=== PATIENT | male | born 1985 | race Two or more races ===

== ENCOUNTER 2017-08-09 04:09 | Emergency (ER) | payer SELFPAY ==
[~2017-08-09] VITALS: Ht 172.7 cm; Wt 71.6 kg
[2017-08-09 04:10] VITALS: BP 111/74
[2017-08-09] MEDS ORDERED: KETOROLAC 30 MG/1 ML ONE (05:18)
[2017-08-09] MEDS ORDERED: KETOROLAC 30 MG/1 ML IM ONE (05:30)
== END 2017-08-09 06:16 | disposition home or self-care (01) ==
LOC: ED 06:10 → MERGE 06:10 → ED 06:16
DX: R07.89 Other chest pain (principal); F17.210 Nicotine dependence, cigarettes, uncomplicated
CPT/HCPCS: 71101; 96372; 99284; J1885

== ENCOUNTER 2018-04-10 14:54 | Emergency (ER) | payer OTHER ==
[~2018-04-10] VITALS: Ht 167.6 cm; Wt 75.0 kg
[2018-04-10 15:00] VITALS: BP 106/53
[2018-04-10] MEDS ORDERED: HYDROcodone/APAP 5/325 TABLET ONE (15:56)
[2018-04-10] MEDS ORDERED: HYDROcodone/APAP 5/325 TABLET PO ONE (16:00)
== END 2018-04-10 16:18 | disposition home or self-care (01) ==
LOC: ED 16:12
DX: S93.412A Sprain of calcaneofibular ligament of left ankle, initial encounter (principal); G89.11 Acute pain due to trauma; M25.572 Pain in left ankle and joints of left foot; M79.672 Pain in left foot; M79.5 Residual foreign body in soft tissue; X50.1XXA Overexertion from prolonged static or awkward postures, initial encounter; Y93.66 Activity, soccer; Y99.8 Other external cause status; Y92.830 Public park as the place of occurrence of the external cause
CPT/HCPCS: 99284

== ENCOUNTER 2018-12-16 13:22 | Emergency (ER) | payer SELFPAY ==
[~2018-12-16] VITALS: Ht 167.6 cm; Wt 73.0 kg
[2018-12-16 13:24] VITALS: BP 125/80
[2018-12-16] MEDS ORDERED: L.E.T SOLUTION TP ONE ×2 (13:45→14:00)
[2018-12-16] MEDS ORDERED: DIPH,PERTUSS(ACELL),TET VAC/PF 0.5 ML IM-VACC ONE (13:57)
[2018-12-16] MEDS ORDERED: DIPH,PERTUSS(ACELL),TET VAC/PF NC IM-VACC ONE (14:00)
== END 2018-12-16 16:06 | disposition home or self-care (01) ==
LOC: ED 15:03
DX: S01.81XA Laceration without foreign body of other part of head, initial encounter (principal); S01.21XA Laceration without foreign body of nose, initial encounter; F17.200 Nicotine dependence, unspecified, uncomplicated; W10.9XXA Fall (on) (from) unspecified stairs and steps, initial encounter; Y93.89 Activity, other specified; Y92.009 Unspecified place in unspecified non-institutional (private) residence as the place of occurrence of the external cause; Y99.8 Other external cause status
CPT/HCPCS: 12013; 70450; 70486; 90471; 90715

== ENCOUNTER 2019-05-04 23:34 | Emergency (ER) | payer SELFPAY ==
[~2019-05-04] VITALS: Ht 167.6 cm; Wt 75.6 kg
[2019-05-04 23:58] VITALS: BP 107/63
[2019-05-05] MEDS ORDERED: CEFTRIAXONE 250 MG IM ONE
[2019-05-05] MEDS ORDERED: AZITHROMYCIN 500 MG TABLET PO ONE
[2019-05-05] MEDS ORDERED: CEFTRIAXONE 250 MG ONE (00:20)
[2019-05-05] MEDS ORDERED: AZITHROMYCIN 250 MG TABLET ONE (00:20)
== END 2019-05-05 01:33 | disposition home or self-care (01) ==
LOC: ED 05-05 01:20
DX: A56.01 Chlamydial cystitis and urethritis (principal); N50.811 Right testicular pain; N50.812 Left testicular pain; K40.90 Unilateral inguinal hernia, without obstruction or gangrene, not specified as recurrent
CPT/HCPCS: 76870; 87491; 87591; 96372; 99284; J0696

== ENCOUNTER 2020-05-01 17:47 | Emergency (ER) | payer OTHER ==
[~2020-05-01] VITALS: Ht 167.6 cm; Wt 72.8 kg
--- NOTE | 2020-05-01 18:30 | NUR ---
Pt to CT
--- NOTE | 2020-05-01 18:41 | NUR ---
Pt in no distress, on phone, laughing, friend at bedside.
--- NOTE | 2020-05-01 19:41 | NUR ---
Pt resting, no complaints, MD at bedside.
[2020-05-01 19:42] VITALS: BP 105/54
== END 2020-05-01 20:20 | disposition home or self-care (01) ==
LOC: ED 18:00
DX: S16.1XXA Strain of muscle, fascia and tendon at neck level, initial encounter (principal); S09.90XA Unspecified injury of head, initial encounter; M25.512 Pain in left shoulder; Y04.0XXA Assault by unarmed brawl or fight, initial encounter; Y93.89 Activity, other specified; Y92.009 Unspecified place in unspecified non-institutional (private) residence as the place of occurrence of the external cause; Y99.8 Other external cause status
CPT/HCPCS: 70450; 72125; 99285